=== PATIENT | male | born 2000 | race Caucasian/White ===

== ENCOUNTER 2024-06-25 17:41 | Emergency (ER) | payer OTHER, SELFPAY ==
[2024-06-25 17:43] VITALS: BP 124/72
[2024-06-25 17:44] VITALS: BP 124/72; BMI 22.3
[2024-06-25 18:00] VITALS: BP 116/78
[2024-06-25 18:03] LABS: % Basophils 0.3 % (0-2); % Eosinophils 0.1 % (0-6); % Immature Granulocytes 0.2 % (0-0.5); % Lymphocytes 25.4 % (20.5-51.1); % Monocytes 8.4 % (1.7-9.3); % Neutrophils 65.6 % (42.2-75.2); Absolute Lymphocytes 2.3 10^3/uL (1.2-3.4); Absolute Monocytes 0.8 10^3/uL (0.1-0.6); Absolute Neutrophils 5.9 10^3/uL (1.4-6.5); Hematocrit 39.2 % (39.0-52.0); Hemoglobin 13.9 g/dL (13.0-18.0); Mean Corp Hgb Conc. 35.5 g/dL (33.0-37.0); Mean Corpuscular Hgb 31.7 pg (27.0-31.0); Mean Corpuscular Volume 89.3 fL (80.0-94.0); Mean Platelet Volume 8.5 fL (7.4-10.4); Nucleated Red Blood Cells % 0 % (-); Platelet Count 428 10^3/uL (130-400); Red Blood Cell Count 4.39 10^6/uL (4.70-6.10); Red Cell Dist. Width 11.3 % (11.5-14.5)
[2024-06-25 18:15] LABS: ALT (SGPT) 21 U/L (0-50); AST (SGOT) 28 U/L (17-59); Alkaline Phosphatase 66 U/L (38-126); Blood Urea Nitrogen 20 mg/dl (9-20); Calcium 9.3 mg/dl (8.4-10.2); Carbon Dioxide 24 mmol/L (22-30); Chloride 99 mmol/L (98-107); Estimated Creatinine Clearance > 125 ml/min; Glucose 148 mg/dl (70-99); Sodium 139 mmol/L (135-145); Total Bilirubin 0.7 mg/dl (0.2-1.3); Total Protein 7.8 g/dl (6.3-8.2); eGFR > 60.00
--- NOTE | 2024-06-25 18:48 | ED.GENMED ---
History of Present Illness
General
Chief Complaint: Seizure
Source: patient and family (parents)
Exam Limitations: none
Time Seen by Provider: 06/25/24 18:33
Nursing documentation reviewed up to this point in time: agreed with
History of Present Illness
History of Present Illness:
Patient to ED after seizure at work. According to patient/parents, seizure lasted approx 30 seconds. He has a history of seizures. On Keppra 2g HS. He reports compliance with medications. Last seiuzre was approx 1.5 years ago. Last seen by
neurology approx 3 years ago. Also reports episode of SVT with EMS. SVT broke with valsalva maneuver. No prior history. He is awake and alert, parents at bedside.
Past History
Past History
ED Past Medical History: Seizures
ED Past Surgical History: None
Review of Systems
Review of Systems
Allergies reviewed?: Yes
All Other Systems: ROS reviewed and negative except as documented in HPI and ROS
Constitutional: Reports no symptoms
EENT: Reports no symptoms
Respiratory: Reports no symptoms
Cardiac: Reports other (SVT [employer])
ABD/GI: Reports no symptoms
Musculoskeletal: Reports no symptoms
Skin: Reports no symptoms
Neurological: Reports other (30 sec seizure [employer])
Psychiatric: Reports no symptoms
Phy Exam
General Physical Exam
General Presentation: well appearing and no apparent distress
General age: appears stated age
General Skin: warm and dry
General Habitus: normal
General Mental: alert
Cardiovascular Exam
Cardiovascular Exam: regular rate/rhythm and no edema
Pulmonary Exam
Pulmonary Exam: lungs clear and no respiratory distress
Neurological Exam
Neurological Exam: alert, oriented x3, CN II-XII intact, no motor deficits, no sensory deficits and speech normal
Musculoskeletal Exam
Musculoskeletal Exam: full ROM and neuro vasc intact
Skin Exam
Skin Exam: normal color, warm/dry and no rash
Psychiatric Exam
Psychiatric Exam: normal mood/affect
Course
Orders/Labs/Results
Orders:
Orders
06/25/24 17:43
EKG [Electrocardiogram (*1)] Urgent
Reason for Study: Tachycardia
EKG- Treatment ONCE
06/25/24 17:52
Complete Blood Count/With Diff Urgent
Comprehensive Metabolic Panel Urgent
Abnormal Lab Results
06/25/24
17:52
RBC 4.39 L 10^6/uL
(4.70-6.10)
MCH 31.7 H pg
(27.0-31.0)
RDW 11.3 L %
(11.5-14.5)
Plt Count 428 H 10^3/uL
(130-400)
Absolute Monos (auto) 0.8 H 10^3/uL
(0.1-0.6)
Glucose 148 H mg/dl
(70-99)
06/25/24 17:52
06/25/24 17:52
Vital Signs
Initial and Last Documented VS:
Initial Vital Signs
BP
124/72
06/25/24 17:43
Last Documented Vital Signs
Temp Pulse Resp BP Pulse Ox
97.3 F 87 20 110/74 96
06/25/24 17:49 06/25/24 19:00 06/25/24 19:00 06/25/24 19:00 06/25/24 19:00
*Critical Care Note
Total Time (30-74mins, 75-104mins- exclusive of procedures): Not Applicable
Update Note
Update Note:
Patient to ED after 30 second seizure at work. Reports complaince with Keppra. Last seizure 1.5yrs ago. Follows johan neurologist at [facility] although he has not been seen in the office for approx 3 years. On exam he is alert and oriented x3. No
complaints. Labs reviewed, no concerning findings. EMS reported an episode of SVT which resolved with valsalva. Remains NSr here. EKG without changes. He is discharged home and will follow up with his neurologist in the AM. Will continue Kepra
2g as prescribed. He was instructed not to drive. [employer] form competed and faxed. [facility] instructions on s/s to return t ED and he is agreeable to plan.
ED Attending Note
-
Portions of this chart may have been created with voice recognition software.� Occasional wrong word or��sound alike� substitutions may have occurred due to the inherent limitations of voice recognition software.
Discharge Plan
Departure
Patient Disposition: Home (Routine Discharge)
Date of Disposition: 06/25/24
Time of Disposition: 19:07
Patient with high blood pressure during this ER visit?: No
Condition: Good
Covid-19: Not Applicable
Discharge Problem:
Seizure
Instructions: Seizures, Adult (DC)
Prescriptions:
No Action
methylphenidate HCl [Concerta] 18 MG tablet extended release 24hr
18 mg PO .MON,E,TUE,THUR,FR
escitalopram oxalate 10 MG tablet
10 mg PO DAILY
Stand Alone Forms: Return to Work
Activity Restrictions/Additional Instructions:
Continue Keppra as prescribed. FOllow up with your neurologist in the AM. NO DRIVING UNTIL CLEARED TO RETURN BY NEUROLOGIST.
Interventions
Interventions:
*Risk Screen - Suicide Last Done: 06/25/24 17:44
*General Assessment Last Done: 06/25/24 17:44
*Neglect/Abuse Screening Last Done: 06/25/24 17:44
ED- Fall Risk Assessment Last Done: 06/25/24 17:44
*ED COVID-19 Vaccine History Last Done: 06/25/24 17:44
*Nursing Disposition Last Done: 06/25/24 19:14
ED- Cardiac Assessment Last Done: 06/25/24 17:50
ED- Neurological Assessment Last Done: 06/25/24 17:50
ED- Pulmonary Assessment Last Done: 06/25/24 17:50
Discharge Date and Time
Discharge Date/Time: 06/25/24 19:29
Print Language: KAZAKH
[2024-06-25 19:00] VITALS: BP 110/74
== END 2024-06-25 19:29 | disposition home or self-care (01) ==
LOC: EMR 17:41
PROVIDERS: EMERGENCY PHYSICIAN Emergency Medicine; FAMILY PHYSICIAN Family Medicine Sports Medicine
DX: R56.9 Unspecified convulsions (principal); I47.10 Supraventricular tachycardia, unspecified
CPT/HCPCS: 99284; 80053; 85025; 93005

== ENCOUNTER 2024-09-29 20:31 | Emergency (ER) | payer OTHER, SELFPAY ==
[2024-09-29 20:36] VITALS: BP 114/77
[2024-09-29 20:54] LABS: Glucose - Point of Care 164 mg/dl (70-99)
[2024-09-29 21:00] VITALS: BP 112/70
[2024-09-29] MEDS: KEPPRA 2000 MG IV (21:38)
[2024-09-29 21:59] LABS: % Basophils 0.4 % (0-2); % Eosinophils 0.1 % (0-6); % Immature Granulocytes 0.2 % (0-0.5); % Lymphocytes 9.1 % (20.5-51.1); % Monocytes 8.7 % (1.7-9.3); % Neutrophils 81.5 % (42.2-75.2); Absolute Basophils 0.1 10^3/uL (0-0.2); Absolute Lymphocytes 1.2 10^3/uL (1.2-3.4); Absolute Monocytes 1.2 10^3/uL (0.1-0.6); Absolute Neutrophils 11.2 10^3/uL (1.4-6.5); Hematocrit 37.4 % (39.0-52.0); Hemoglobin 13.3 g/dL (13.0-18.0); Mean Corp Hgb Conc. 35.6 g/dL (33.0-37.0); Mean Corpuscular Hgb 31.8 pg (27.0-31.0); Mean Corpuscular Volume 89.5 fL (80.0-94.0); Mean Platelet Volume 8.8 fL (7.4-10.4); Nucleated Red Blood Cells % 0 % (-); Platelet Count 238 10^3/uL (130-400); Red Blood Cell Count 4.18 10^6/uL (4.70-6.10); Red Cell Dist. Width 11.7 % (11.5-14.5); White Blood Cell Count 13.7 10^3/uL (4.8-10.8)
--- NOTE | 2024-09-29 22:14 | ED.GENMED ---
History of Present Illness
General
Chief Complaint: Seizure
Time Seen by Provider: 09/29/24 20:55
History of Present Illness
History of Present Illness:
24-year-old male with history of epilepsy on Keppra presenting after a witnessed seizure. Patient notes he was at a work event. Patient had a witnessed seizure, unclear details regarding the seizure. Patient has no recollection of the event,
however notes that this is typical of his seizures. He reports compliance with his Keppra, is on 2000 mg every night. He denies any missed dosages. He has not followed up with neurology in a while. Patient previously been getting a lot of
seizures in college, however suspected to be triggered from alcohol. Denies any alcohol ingestion today. Seizure 2 months ago was also triggered by alcohol. He presently denies any acute complaints. After patient had a seizure, did go into a
brief episode of SVT, however parents note that this is typical after his seizures. He presently denies any acute complaint such as chest pain, difficulty breathing, weakness. Denies any fever or recent illness. Denies additional acute medical
complaints
Past History
Past History
ED Past Medical History: Seizures
ED Past Surgical History: None
Phy Exam
Physical Exam
Physical Exam:
General: Well-appearing, no clinical signs of dehydration, nontoxic and in no acute distress
HEENT: protecting airway, pupils equal and reactive
Neck: appears supple
CV: Normal heart rate, regular rhythm
Resp: No accessory muscle use, no increased work of breathing, lungs clear to auscultation bilaterally
Abd: No distention
Extremities: No deformities, no swelling
Neuro: alert, no focal neurologic deficit
: deferred
Rectal: deferred
Psych: Normal affect
Skin: Intact
Course
Orders/Labs/Results
Orders:
Orders
09/29/24 20:48
Electrocardiogram (*1) Urgent
Reason for Study: Chest Pain
Cardiac Monitoring- Treatment ONCE
EKG- Treatment ONCE
IV Insert/Care/Rem.- Treatment PRN
O2 Therapy [RESP] Urgent
Titrate/Wean O2 to maintain O2 sat greater than (%): 90
Special Instructions: Maintain sats >/=90%
Pulse Ox/spot Check [RESP] Urgent
Quantity: 1
Special Instructions: ON ROOM AIR
09/29/24 21:31
Levetiracetam Injectable [Keppra] 2,000 mg IV NOW STA
09/29/24 21:40
Complete Blood Count/With Diff Urgent
Comprehensive Metabolic Panel Urgent
Abnormal Lab Results
09/29/24 09/29/24
20:53 21:40
WBC 13.7 H 10^3/uL
(4.8-10.8)
RBC 4.18 L 10^6/uL
(4.70-6.10)
Hct 37.4 L %
(39.0-52.0)
MCH 31.8 H pg
(27.0-31.0)
Absolute Neuts (auto) 11.2 H 10^3/uL
(1.4-6.5)
Absolute Monos (auto) 1.2 H 10^3/uL
(0.1-0.6)
Neutrophils % 81.5 H %
(42.2-75.2)
Lymphocytes % 9.1 L %
(20.5-51.1)
Chloride 108 H mmol/L
(98-107)
BUN 25 H mg/dl
(9-20)
Glucose 133 H mg/dl
(70-99)
POC Glucose 164 H mg/dl
(70-99)
09/29/24 21:40
09/29/24 21:40
Vital Signs
Initial and Last Documented VS:
Initial Vital Signs
BP Pulse Ox
114/77 97
09/29/24 20:36 09/29/24 20:36
Last Documented Vital Signs
Temp Pulse Resp BP Pulse Ox
97.7 F 87 17 112/70 97
09/29/24 20:43 09/29/24 21:45 09/29/24 21:45 09/29/24 21:00 09/29/24 22:30
MDM/Problems Addressed
MDM/Problems Addressed:
24-year-old male with history of seizure disorder on Keppra presenting for a seizure. Vital signs significant for mild tachycardia.
On exam patient is resting comfortably, no acute distress or discomfort. Patient is awake, alert, oriented. No focal neurologic deficits. Patient afebrile, nontoxic. Ultimately suspect breakthrough seizure in a patient with known seizure
disorder. [id number] glucose on arrival is normal. EKG obtained nonischemic, no arrhythmia. Patient did have reported brief episode of SVT, which resolved upon arrival. He notes that this is frequent of his ictal period. Mother reports the
patient has been on his Keppra for quite some time may need a medication adjustment, has not seen neurology in quite some time. Will plan for screening laboratory analysis. Patient is due for his Keppra, will administer.
22:30 - Labs are unremarkable. Mild leukocytosis, suspected to be reactive from seizure. Patient otherwise remained stable. Feel stable for discharge. Mother will call neurologist for appointment. Compliance with Keppra. Strict return
precautions communicated and patient and mother verbalized understanding
*EKG
Interpreted by ED Provider?: Yes
EKG Intrepretation Date: 09/29/24
EKG Intrepretation Time: 22:33
Interpretation: normal
Heart Rate: 95
Rate: normal
Rhythm: sinus
[place]: normal axis
Interval: normal interval
QRS Pattern: normal QRS
Ischemia: no ischemia
*Critical Care Note
Total Time (30-74mins, 75-104mins- exclusive of procedures): Not Applicable
ED Attending Note
-
Portions of this chart may have been created with voice recognition software.� Occasional wrong word or��sound alike� substitutions may have occurred due to the inherent limitations of voice recognition software.
Discharge Plan
Departure
Patient Disposition: Home (Routine Discharge)
Date of Disposition: 09/29/24
Time of Disposition: 22:28
Patient with high blood pressure during this ER visit?: No
Condition: Good
Discharge Problem:
Breakthrough seizure
Instructions: Seizures, Adult (DC)
Prescriptions:
No Action
methylphenidate HCl [Concerta] 18 MG tablet extended release 24hr
18 mg PO .MON,E,TUE,THUR,FR
escitalopram oxalate 10 MG tablet
10 mg PO DAILY
Referrals:
Jasmyne Edwards MD [Non-Admitting Privileges] - (seizures)
Activity Restrictions/Additional Instructions:
You were seen in the emergency department for a seizure
You were found to have normal EKG and blood work. Please follow-up with the neurologist regarding possible medication adjustment.
Please follow-up closely with your primary care physician.
Return to the emergency department for any worsening of your symptoms, or any development of chest pain, difficulty breathing, abdominal pain with persistent vomiting and inability to tolerate food or liquid by mouth (concern for dehydration),
weakness, headache or confusion, fever greater than 100.4, or any additional symptoms that are concerning to you.
Thank you for choosing [facility].
Interventions
Interventions:
*Risk Screen - Suicide Last Done: 09/29/24 20:43
*General Assessment Last Done: 09/29/24 20:43
*Neglect/Abuse Screening Last Done: 09/29/24 20:43
*ED- Fall Risk Assessment Last Done: 09/29/24 20:43
*ED COVID-19 Vaccine History Last Done: 09/29/24 20:43
Discharge Date and Time
Print Language: ZAMBIAN
[2024-09-29 22:24] LABS: ALT (SGPT) 18 U/L (0-50); AST (SGOT) 25 U/L (17-59); Albumin 4.2 g/dl (3.5-5.0); Alkaline Phosphatase 52 U/L (38-126); Blood Urea Nitrogen 25 mg/dl (9-20); Calcium 8.4 mg/dl (8.4-10.2); Carbon Dioxide 29 mmol/L (22-30); Chloride 108 mmol/L (98-107); Glucose 133 mg/dl (70-99); Sodium 141 mmol/L (135-145); Total Bilirubin 0.4 mg/dl (0.2-1.3); Total Protein 6.8 g/dl (6.3-8.2); eGFR > 60.00
== END 2024-09-29 23:26 | disposition home or self-care (01) ==
LOC: EMR 20:31
PROVIDERS: EMERGENCY PHYSICIAN Student in an Organized Health Care Education/Training Program; FAMILY PHYSICIAN Family Medicine Sports Medicine
DX: G40.909 Epilepsy, unspecified, not intractable, without status epilepticus (principal); I47.10 Supraventricular tachycardia, unspecified; Z79.899 Other long term (current) drug therapy
CPT/HCPCS: 99283; 96374; 80053; 82962; 85025; 93005